=== PATIENT | male | born 1985 | race Caucasian/White ===

== ENCOUNTER 2020-08-30 10:06 | Emergency (ER) | payer MEDICAID ==
--- NOTE | 2020-08-30 10:39 | EDM.PDOC ---
ED HPI GENERAL MEDICAL PROBLEM - General Chief Complaint: Cardiovascular Problem Stated Complaint: HEART BEATS SKIPPING Time Seen by Provider: 08/30/20 10:30 Source of Information: Reports: Patient History Limitations: Reports: No Limitations - History of Present Illness INITIAL COMMENTS - FREE TEXT/NARRATIVE: 35-year-old male who has a long history of occasional palpitations, stopped drinking alcohol last Friday and is still having fairly frequent PACs or PVCs especially in the evenings. No shortness of breath or cough, no chest pain. He went into the clinic to talk about this and they sent him to the emergency room. Onset: Unknown/Unsure Duration: Chronic Associated Symptoms: Reports: No Other Symptoms - Related Data Allergies Allergy/AdvReac Type Severity Reaction Status Date / Time No Known Allergies Allergy Verified 08/30/20 10:35 Home Meds: Home Meds NK [No Known Home Meds] 08/30/20 [History] ED ROS GENERAL - Review of Systems Review Of Systems: See Below Constitutional: Denies: Fever, Chills, Malaise HEENT: Denies: Vision Change Respiratory: Denies: Shortness of Breath Cardiovascular: Reports: Palpitations. Denies: Chest Pain GI/Abdominal: Denies: Nausea, Vomiting Skin: Reports: No Symptoms Neurological: Denies: Dizziness, Headache Psychiatric: Reports: No Symptoms ED EXAM, GENERAL - Physical Exam Exam: See Below Exam Limited By: No Limitations General Appearance: Alert, No Apparent Distress Head: Atraumatic Respiratory/Chest: No Respiratory Distress, Lungs Clear Cardiovascular: Regular Rate, Rhythm, No Murmur. No: Extra Beats Extremities: Normal Inspection. No: Pedal Edema Neurological: Alert, Oriented Psychiatric: Normal Affect, Normal Mood Skin Exam: Warm, Dry Course - Vital Signs Last Recorded V/S: Last Vital Signs Temp 97.7 F 08/30/20 10:35 Pulse 80 08/30/20 10:35 Resp 16 08/30/20 10:35 BP 142/89 H 08/30/20 10:35 Pulse Ox 99 08/30/20 10:35 - Re-Assessments/Exams Free Text/Narrative Re-Assessment/Exam: 08/30/20 11:06 Long discussion with the patient regarding sources of palpitations including PACs and PVCs, he was kept on the monitor almost an hour and showed no ectopy, remained in a normal sinus rhythm throughout. Vitals were stable and he was asymptomatic. Departure - Departure Time of Disposition: 11:24 Disposition: Home, Self-Care 01 Clinical Impression: Intermittent palpitations Instructions: Palpitations, [id number] Referrals: Lucy Mcdonough PA [Primary Care Provider] - Forms: ED Department Discharge Care Plan Goals: Increase activity as tolerated, stay hydrated, and call the clinic to set up a physical in the near future. Return anytime if worsening such as chest pain or shortness of breath. Sepsis Event Note (ED) - Focused Exam Vital Signs: Vital Signs Temp Pulse Resp BP Pulse Ox 08/30/20 10:35 97.7 F 80 16 142/89 H 99 08/30/20 10:29 97.7 F 80 16 142/89 H 99
== END 2020-08-30 11:26 | disposition home or self-care (01) ==
LOC: JP.ED 10:06
DX: R00.2 Palpitations (principal)
CPT/HCPCS: 99284

== ENCOUNTER 2024-11-15 10:06 | Emergency (ER) | payer MEDICAID, OTHER | END 2024-11-15 11:33 | disposition home or self-care (01) | LOC: JP.ED 10:06 | DX: H10.11 Acute atopic conjunctivitis, right eye (principal); R51.9 Headache, unspecified | CPT/HCPCS: 99283 ==